=== PATIENT | female | born 1955 | race Caucasian/White ===

== ENCOUNTER 2016-06-03 22:00 | Emergency (ER) | payer OTHER ==
--- NOTE | ~2016-06-03 | CT2 ---
[facility] A Service of [facility] [place] RADIOLOGY TEXT RESULTS PATIENT: SELAM ALEXANDER LOCATION: [facility] : 53 UNIT #: [id number] AGE: [address]: Vinayak James MD SEX: F ORDER DR: [id number] [facility] [address] [place], [place] [address] [id number] MR#: [id number] Acc #: [id number] NAME: SELAM ALEXANDER : 1955 SEX: F STUDY DATE/TIME: 06/03/2016 23:49 UNIT: [facility] ROOM: STUDY DESCRIPTION: CT Abd and Pelv W Cont Attending Physician: Hoang James M.D. Ordering Physician: Hoang James M.D. Primary Care Physician: No Primary Care Physician MEDICAL IMAGING REPORT This report is preliminary unless electronic signature is present EXAM CT abdomen and pelvis with contrast Date: 06/03/2077 at 2349 HISTORY 60-year-old female with right upper quadrant abdominal pain, nausea, which began last night at 2100. COPD. Asthma. Hypertension. Smoking history. Previous hysterectomy and appendectomy. COMPARISON CT abdomen and pelvis with contrast 09/28/2015. TECHNIQUE 5 mm axial images from the lung bases through lesser trochanters after intravenous and enteric contrast administration. Sagittal and coronal reformatted images were obtained. This CT exam was performed with one or more of the following radiation dose reduction techniques: Automatic exposure control, adjustment of mA and/or kV according to patient size, and iterative reconstruction. FINDINGS Right hepatic lobe cyst unchanged. Stable mild cardiac enlargement. Mild emphysematous changes in lung bases. The spleen, pancreas, right adrenal gland are normal. A cyst in the lateral left mid kidney measures 1.2 cm, not thought to be significantly changed. Not mentioned above, left adrenal thickening, unchanged from 09/28/2015. Limited evaluation of bowel, as much of the small bowel loops and the colon are not opacified with enteric contrast at the time of image acquisition but no focal bowel inflammation is seen. The appendix is not confidently visualized on this examination. [facility] A Service of [facility] RADIOLOGY TEXT RESULTS PATIENT: SELAM ALEXANDER LOCATION: [facility] : 53 UNIT #: [id number] AGE: [address]: Vinayak James MD SEX: F ORDER DR: There is fusiform aneurysmal dilation of the infrarenal abdominal aorta measuring up to 3.0 x 3.0 cm with moderate eccentric mural thrombus and calcifications. It appears unchanged in size, but the degree of intraluminal thrombus appears slightly increased since the previous study. Calcific atherosclerotic changes are seen within the superior mesenteric artery without flow-limiting stenosis. 3 right and 2 left renal arteries are incidentally noted. Dense calcific atherosclerosis is present within the bilateral common iliac arteries. Pelvis findings: Diverticular changes are present within the sigmoid colon. There is mild generalized thickening of the long segment of the sigmoid colon which may be the result of chronic hypertrophy related to diverticular disease. Mild acute colitis or diverticulitis cannot be excluded. Urinary bladder is decompressed. Rectum is normal. Hysterectomy. No acute osseous abnormalities. Degenerative changes in the lumbar spine greatest at L4-5. IMPRESSION 1. Appendix not visualized. This in keeping with the patient's stated history of appendectomy. 2. Questionable mild segmental thickening of the [id number] sigmoid colon where diverticular changes are present. This may simply represent chronic hypertrophy relating to longstanding diverticular disease. Mild colitis or diverticulitis cannot be excluded. 3. Right hepatic cyst and left renal cyst are unchanged from prior. 4. Stable left adrenal thickening, likely on the basis of hyperplasia. 5. 3 cm fusiform infrarenal abdominal aortic aneurysm with moderate eccentric renal thrombus. While the caliber of the aorta is stable since 09/28/2015, the degree of intramural thrombus within it is increased. No dissection or high-grade stenosis is seen. Dictated by... Jenna Bazan M.D. THIS IS AN ELECTRONICALLY VERIFIED REPORT Jenna Bazan M.D. at 06/05/2016 1:51 AM LINDA/aneta TD: 06/04/2016 10:53 JOB #: [id number] MEDICAL IMAGING REPORT COPY
[2016-06-03 17:47] LABS: BASOPHIL# 0.1 X10e3 (0-0.3); BASOPHIL% 0.7 % (0-2.5); HEMATOCRIT 40.5 % (35.0-45.0); HEMOGLOBIN 13.5 gm/dL (12.0-16.0); LYMPHOCYTE# 2.1 X10e3 (1.0-3.5); LYMPHOCYTE% 17.6 % (17.0-45.0); MEAN CELL VOLUME 92.2 FL (83-96); MEAN CORPUSCULAR HEMOGLOBIN 30.7 PG (28-34); MEAN CORPUSCULAR HGB CONC 33.3 g/dL (30-36); MEAN PLATELET VOLUME 8.7 FL (6.5-11.5); MONOCYTE# 1.2 X10e3 (0-1.0); MONOCYTE% 10.6 % (3.0-12.0); NEUTROPHIL# 8.4 X10e3 (1.5-7.1); NEUTROPHIL% 71.1 % (40-75); PLATELET COUNT 277 X10e3 (140-420); RED CELL DISTRIBUTION WIDTH 15.3 % (11.0-15.5); WHITE BLOOD COUNT 11.8 X10e3 (4.0-10.5)
[2016-06-03 17:49] LABS: DIFF IND NO
[2016-06-03 18:13] LABS: ALBUMIN SERUM 4.6 g/dL (3.5-5.0); ALKALINE PHOSPHATASE 67 U/L (32-92); ALT (SGPT) 19 U/L (10-40); AST (SGOT) 39 U/L (10-42); BILIRUBIN, DIRECT 0.2 mg/dL (0.0-0.2); BILIRUBIN,TOTAL 1.2 mg/dL (0.2-2.0); BLOOD UREA NITROGEN 28 mg/dL (9-23); BUN/CREATININE RATIO 46.66; CALCIUM SERUM 9.7 mg/dL (8.4-10.2); CARBON DIOXIDE 19 mmol/L (22-31); CHLORIDE 101 mmol/L (100-111); CREATININE SERUM 0.6 mg/dL (0.6-1.4); GLOM FILT RATE Estimated ABOVE60 mL/min (>60); GLUCOSE FASTING 161 mg/dL (70-110); LIPASE 11 U/L (22-51); POTASSIUM 3.6 mmol/L (3.5-5.1); PROTEIN TOTAL SERUM 7.9 g/dL (6.0-8.3); SODIUM 135 mmol/L (135-145)
[~2016-06-03 22:00] MED LIST: ACETAMINOPHEN650 M4 PO; ASPIRIN81 M2 PO; CELEXA PO; COMBIVENT U/D3 M1 INH; COMBIVENT U/D3 M2 INH; COZAAR100 MG PO; DESYREL100 MG PO; GLUCOPHAGE500 MG PO; KLONOPIN0.5 MG PO; LEVAQUIN750 M1 PO; LIPITOR20 MG PO; LIPITOR40 MG PO; NEXIUM PO; NICOTINE TRANSD14 MG EXT; NO MEDICATIONS; PAIN RELIEF325 MG PO; PREDNISONE PO; PREDNISONE10 MG PO; PRINIVIL20 M1 PO; PRINIVIL40 MG PO; PROTONIX PO; SEROQUEL25 MG PO; ULTRAM PO; [UNRECOGNIZED DRUG - CODE] INH
[2016-06-04 00:03] LABS: URINE SOURCE CLEAN CATCH
[2016-06-04 00:10] LABS: URINE APPEARANCE CLEAR; URINE BILIRUBIN NEG (NEG); URINE BLOOD 2+ (NEG); URINE COLOR YELLOW; URINE GLUCOSE NEG (NEG); URINE KETONE 1+ (NEG); URINE LEUKOCYTE ESTERASE NEG (NEG); URINE NITRATE NEG (NEG); URINE PH 5.5 (5-8); URINE PROTEIN 3+ (NEG); URINE SPECIFIC GRAVITY 1.029 (1.003-1.035); URINE UROBILINOGEN 0.2 MG/DL (NEG)
[2016-06-04 00:12] LABS: URBCS1 AUWI 0-2 /[HPF] (0-2); URINE BACTERIA AUWI NEG (NEGATIVE); URINE SQUAMOUS EPITHELIAL CELL OCC /[HPF]; UWBCS1 AUWI 0-2 (0-5)
[2016-06-04 00:18] LABS: CULTURE INDICATED? NO
[2016-06-04 00:19] LABS: URINE MUCUS PRESENT
== END 2016-06-04 01:30 | disposition home or self-care (01) ==
LOC: CED 22:00
DX: K57.32 Diverticulitis of large intestine without perforation or abscess without bleeding (principal); F17.210 Nicotine dependence, cigarettes, uncomplicated; I10 Essential (primary) hypertension; J44.9 Chronic obstructive pulmonary disease, unspecified; F41.9 Anxiety disorder, unspecified; Z90.49 Acquired absence of other specified parts of digestive tract; Z90.710 Acquired absence of both cervix and uterus
CPT/HCPCS: 36415; 74177; 80048; 80076; 81003; 83690; 85025; 96361; 96374; 96375; 99284; J1170; J2270; J2405; Q9967

== ENCOUNTER 2016-09-13 21:04 | Emergency (ER) | payer OTHER | END 2016-09-13 21:10 | disposition EXP | LOC: CED 21:04 → EDBD 22:38 → CED 22:38 | DX: I46.9 Cardiac arrest, cause unspecified (principal); J44.9 Chronic obstructive pulmonary disease, unspecified; F17.200 Nicotine dependence, unspecified, uncomplicated | CPT/HCPCS: 92950; 99285; J0171; J0461 ==